=== PATIENT | male | born 1950 | race Caucasian/White ===

== ENCOUNTER 2018-08-14 06:40 | Inpatient (IN) | payer MEDICARE, BC ==
[2018-08-14] MEDS: TRANEXAMIC ACID 1GM/100ML(PMX) 100 ML IVPB ×2 (06:30→15:11)
[2018-08-14] MEDS: CEFAZOLIN 2 GM/50 ML (PMX) 50 ML IVPB (07:00)
[2018-08-14] MEDS ORDERED: SEVOFLURANE 15 MIN (07:00)
[2018-08-14] MEDS: GABAPENTIN 300 MG CAP PO ×2 (09:04→20:32)
[2018-08-14] MEDS: DEXAMETHASONE 1 MG TAB PO (09:04)
[2018-08-14] MEDS: LACTATED RINGER'S 1,000 ML IV (09:05)
[2018-08-14] MEDS ORDERED: POLYMYXIN/BACITRACIN 1L IRRIG (10:31)
[2018-08-14] MEDS ORDERED: CA CHLORIDE 10% 10 ML SYRINGE (10:31)
[2018-08-14] MEDS ORDERED: THROMBIN 5000 UNIT VIAL (10:31)
[2018-08-14] MEDS ORDERED: BUPIVACAINE 0.5% (SDV) 30 ML INJ (11:02)
[2018-08-14] MEDS ORDERED: FENTAnyl 50 MCG/ML VIAL (11:02)
[2018-08-14] MEDS ORDERED: MIDAZOLAM 1 MG/ML 2 ML INJ (11:02)
[2018-08-14] MEDS ORDERED: LIDOCAINE 2% (SDV) 5 ML INJ (11:06)
[2018-08-14] MEDS ORDERED: ROCURONIUM 50 MG INJ (11:08)
[2018-08-14] MEDS ORDERED: PROPOFOL 20 ML (11:08)
[2018-08-14] MEDS ORDERED: CEFAZOLIN 1 GM INJ (11:08)
[2018-08-14] MEDS: TRANEXAMIC ACID 1GM/100ML(PMX) 100 ML (12:17)
[2018-08-14] MEDS ORDERED: DEXAMETHASONE 4 MG/ML 5 ML INJ (12:32)
[2018-08-14] MEDS ORDERED: ONDANSETRON 4 MG INJ (12:32)
[2018-08-14] MEDS: POLYMYXIN/BACITRACIN 1L IRRIG IRR (13:00)
[2018-08-14] MEDS: BUPIVACAINE 0.5% (SDV) 30 ML, morphine SULFATE (PF) 8 MG, EPINEPHrine 0.3 MG, KETOROLAC... IRR (13:01)
[2018-08-14] MEDS ORDERED: NEOSTIGMINE 3 MG/3 ML SYRINGE (14:19)
[2018-08-14] MEDS ORDERED: GLYCOPYRROLATE 0.4 MG INJ (14:19)
[2018-08-14] MEDS ORDERED: NACL 0.9% 3 ML SYG IV (14:30)
[2018-08-14] MEDS ORDERED: ZOLPIDEM 5 MG TAB PO (14:30)
[2018-08-14] MEDS ORDERED: ONDANSETRON 4 MG INJ IV ×2 (14:30)
[2018-08-14] MEDS ORDERED: hydrALAzine 20 MG INJ IV (14:30)
[2018-08-14] MEDS ORDERED: HYDROmorphONE 1 MG/5 ML IV SYRINGE IV ×3 (14:30)
[2018-08-14] MEDS ORDERED: MEPERIDINE 25 MG INJ IV (14:30)
[2018-08-14] MEDS ORDERED: LABETALOL HCL 20MG INJ IV (14:30)
[2018-08-14] MEDS ORDERED: DIPHENHYDRAMINE 50 MG INJ IV ×2 (14:30)
[2018-08-14] MEDS ORDERED: EPHEDrine 25 MG/5 ML SYG IV (14:30)
[2018-08-14] MEDS ORDERED: FENTAnyl 50 MCG/ML VIAL IV ×3 (14:30)
[2018-08-14] MEDS ORDERED: MIDAZOLAM 1 MG/ML 2 ML INJ IV (14:30)
[2018-08-14] MEDS ORDERED: KETOROLAC 30 MG INJ IV (14:30)
[2018-08-14] MEDS ORDERED: ALBUTEROL 0.083% (NEB) 2.5 MG/3 ML AMP HHN (14:30)
[2018-08-14] MEDS ORDERED: MAGNESIUM HYDROXIDE 30ML CUP PO (14:30)
[2018-08-14] MEDS ORDERED: LOPERAMIDE 2 MG CAP PO (14:30)
[2018-08-14] MEDS ORDERED: oxyCODONE 5 MG TAB PO ×3 (14:30)
[2018-08-14] MEDS ORDERED: HYDROmorphONE 1 MG/ML SYG IV (14:30)
[2018-08-14] MEDS ORDERED: METOCLOPRAMIDE 10 MG INJ IV (14:30)
[2018-08-14] MEDS ORDERED: KETOROLAC 15 MG INJ IV (14:30)
[2018-08-14] MEDS ORDERED: CEFAZOLIN 1 GM/50 ML (PMX) 50 ML IVPB (15:05)
[2018-08-14] MEDS: DEXAMETHASONE 2 MG TAB PO ×2 (17:12→23:07)
[2018-08-14] MEDS: ACETAMINOPHEN 500 MG TAB PO ×2 (17:12→23:07)
[2018-08-14] MEDS: CEFAZOLIN 1 GM/50 ML (PMX) 50 ML IVPB (17:42)
[2018-08-14] MEDS: SENNA/DOCUSATE NA (8.6MG/50MG) TAB PO (20:32)
[2018-08-15] MEDS: CEFAZOLIN 1 GM/50 ML (PMX) 50 ML IVPB ×2 (00:12→08:28)
[2018-08-15] MEDS: ACETAMINOPHEN 500 MG TAB PO ×2 (05:23→12:03)
[2018-08-15] MEDS: PANTOPRAZOLE (EC) 40 MG TAB PO (05:23)
[2018-08-15] MEDS: DEXAMETHASONE 2 MG TAB PO ×2 (05:23→12:03)
[2018-08-15] MEDS: SENNA/DOCUSATE NA (8.6MG/50MG) TAB PO (08:28)
[2018-08-15] MEDS: FENOFIBRATE 48 MG TAB PO (08:31)
[2018-08-15] MEDS: LACTATED RINGER'S 1,000 ML IV (08:31)
== END 2018-08-15 13:40 | disposition home or self-care (01) | DRG 483 ==
LOC: REC 06:40 → MS1 15:50
PROC: 0RRJ0JZ Replacement of Right Shoulder Joint with Synthetic Substitute, Open Approach (ICD-10-PCS; principal; 2018-08-14 11:30)
PROC: 0LS30ZZ Reposition Right Upper Arm Tendon, Open Approach (ICD-10-PCS; 2018-08-14 11:30)
DX: M19.011 Primary osteoarthritis, right shoulder (principal); S46.211A Strain of muscle, fascia and tendon of other parts of biceps, right arm, initial encounter
CPT/HCPCS: 73030-RT; 86999; 88304; 88311; 97161